=== PATIENT | male | born 1960 | race Asian ===

== ENCOUNTER 2023-03-03 14:34 | Inpatient (IN) | payer MEDICARE, OTHER ==
[~2023-03-03] VITALS: Ht 175.3 cm; Wt 75.6 kg
[2023-03-03] MEDS ORDERED: PANT-31 PO (14:45)
[2023-03-03] MEDS ORDERED: AMLO-258 PO (14:45)
[2023-03-03] MEDS ORDERED: EMPA10TA3 PO (14:45)
[2023-03-03] MEDS ORDERED: PROP10TA73 PO (14:45)
[2023-03-03] MEDS ORDERED: GABA-1201 PO (14:45)
[2023-03-03] MEDS ORDERED: ASPI-1450 PO (14:45)
[2023-03-03] MEDS ORDERED: TAMS-13 PO (14:45)
[2023-03-03] MEDS ORDERED: METF-1185 PO (14:45)
[2023-03-03] MEDS ORDERED: LOSA-382 PO (14:45)
[2023-03-03] MEDS ORDERED: METH-386 PO (14:45)
[2023-03-03] MEDS ORDERED: ONDANSETRON HCL 4 MG/2 ML VIAL IVP ONE (15:30)
[2023-03-03] MEDS ORDERED: ACETAMINOPHEN 500 MG TABLET PO ONE (15:30)
[2023-03-03] MEDS ORDERED: SODIUM CHLORIDE 0.9% 1,000 ML IV ONE (15:30)
[2023-03-03 15:58] LABS: BASOPHILS % (AUTO) 1.2 % (0.0-2.0); EOSINOPHILS % (AUTO) 3.6 % (1.0-6.0); HEMATOCRIT 42.1 % (41-53); HEMOGLOBIN 13.6 g/dL (13.5-17.5); MEAN CORPUSCULAR HEMOGLOBIN 28.9 pg (26.0-34.0); MEAN CORPUSCULAR HGB CONC 32.2 G/dL (31.0-37.0); MEAN CORPUSCULAR VOLUME 90 fL (80-100); MONOCYTES # (AUTO) 0.5 K/uL (0.1-1.0); MONOCYTES % (AUTO) 4.6 % (2.0-9.0); NEUTROPHILS # (AUTO) 8.5 K/uL (1.8-7.7); NEUTROPHILS % (AUTO) 73.6 % (40.0-70.0); PLATELET COUNT (AUTO) 304 K/uL (150-450); RED BLOOD CELL COUNT(AUTO) 4.69 MIL/uL (4.50-5.90); RED CELL DISTRIBUTION WIDTH 13.8 % (11.5-14.5)
[2023-03-03 16:02] LABS: ANION GAP 13 mmol/L (8-16); CALCIUM, TOTAL 9.5 mg/dL (8.8-10.5); CARBON DIOXIDE 25 mmol/L (22-29); CHLORIDE 100 mmol/L (98-107); GLOMERULAR FILTR. RATE CALC > 60 mL/min (>60); GLUCOSE,RANDOM 131 mg/dL (70-110); POTASSIUM 4.2 mmol/L (3.5-5.1); SODIUM SERUM 138 mmol/L (136-145)
[2023-03-03 16:09] LABS: INR 1.1 (0.9-1.1); PROTHROMBIN TIME 11.1 SEC (9.4-11.6)
[2023-03-03] MEDS ORDERED: IOHEXOL 350 MG/ML 100 ML VIAL ONE (16:12)
[2023-03-03] MEDS ORDERED: SODIUM CHLORIDE 0.9% 100 ML ONE (16:13)
[2023-03-03 16:14] LABS: B-TYPE NATRIURETIC PEPTIDE 7 pg/mL (0-100)
[2023-03-03 16:34] LABS: ALANINE AMINOTRANSFERASE 17 U/L (12-78); ALKALINE PHOSPHATASE 69 U/L (46-116); ASPARTATE AMINOTRANSFERASE 13 U/L (15-37); BILIRUBIN,TOTAL 0.6 mg/dL (0.1-1.0); CREATINE KINASE, TOTAL ONLY 78 U/L (39-308); PHOSPHORUS 3.7 mg/dL (2.5-4.9); TOTAL PROTEIN, SERUM 8.2 g/dL (6.4-8.2)
[2023-03-03] MEDS ORDERED: MAGNESIUM SULFATE 1 GM in DEXTROSE 5%-WATER 50 ML IV ONE (17:15)
[2023-03-03] MEDS ORDERED: ONDANSETRON HCL 4 MG/2 ML VIAL IVP PRN ×2 (18:45→19:15)
[2023-03-03] MEDS ORDERED: ACETAMINOPHEN 325 MG TABLET PO PRN ×2 (18:45→19:15)
[2023-03-03] MEDS ORDERED: 0.9% SODIUM CHLORIDE 10 ML SYRINGE IVP PRN (18:45)
[2023-03-03 18:47] LABS: APPEARANCE,URINE CLEAR (CLEAR); BILIRUBIN,URINE NEGATIVE (NEGATIVE); GLUCOSE, URINE (UA) >=1000 mg/dL (NEGATIVE); LEUKOCYTE ESTERASE ,URINE NEGATIVE (NEGATIVE); NITRATE,URINE NEGATIVE (NEGATIVE); OCCULT BLOOD,URINE NEGATIVE (NEGATIVE); PROTEIN,URINE TRACE mg/dL (NEGATIVE); SPECIFIC GRAVITIY, URINE 1.017 (1.003-1.030); UROBILINOGEN,URINE <=1.0 mg/dL (<=1.0)
[2023-03-03 18:53] LABS: AMPHET/METH SCREEN,URINE NEGATIVE (NEGATIVE); BARBITURATE SCREEN, URINE NEGATIVE (NEGATIVE); BENZODIAZEPINES SCREEN,URINE NEGATIVE (NEGATIVE); CANNABINOID SCREEN,URINE NEGATIVE (NEGATIVE); COCAINE SCREEN,URINE NEGATIVE (NEGATIVE); METHADONE SCREEN, URINE NEGATIVE (NEGATIVE); OPIATE SCREEN,URINE NEGATIVE (NEGATIVE); PHENCYCLIDINE SCREEN,URINE NEGATIVE (NEGATIVE)
[2023-03-03 18:59] LABS: BACTERIA,URINE None Seen /HPF (None Seen); RBC,URINE 0-2 /HPF (0-2); WBC,URINE 0-2 /HPF (0-5)
[2023-03-03 19:00] LABS: SQUAMOUS EPITHELIAL CELL,UR Rare /LPF (None Seen)
[2023-03-03] MEDS ORDERED: BISACODYL 10 MG RECTAL RECTAL SUPPOSITORY PR PRN (19:15)
[2023-03-03] MEDS ORDERED: ZOLPIDEM TARTRATE 5 MG TABLET PO PRN (19:15)
[2023-03-03] MEDS ORDERED: HYDROCODONE/ACETAMINOPHEN 5-325 MG TABLET PO PRN (19:15)
[2023-03-03] MEDS ORDERED: IPRATROPIUM BROMIDE 0.5 MG/2.5 ML NEB SOLUTION NEB PRN (19:15)
[2023-03-03] MEDS ORDERED: ALBUTEROL SULFATE 2.5 MG/0.5 ML NEB SOLUTION NEB PRN (19:15)
[2023-03-03] MEDS ORDERED: MORPHINE SULFATE 2 MG/ML SYRINGE IVP PRN (19:15)
[2023-03-03] MEDS ORDERED: MAGNESIUM HYDROXIDE SUSPENSION 30 ML UDCUP PO PRN (19:15)
[2023-03-03 20:40] VITALS: BP 127/73; PULSE 67; RESP 20; TEMP 98.5
[2023-03-04] VITALS (7 sets, daily range): BP systolic 102–136; BP diastolic 64–78; PULSE 55–74; RESP 18–19; TEMP 97.5–99; O2SAT 99
[2023-03-04] MEDS: HEPARIN SODIUM,PORCINE 5,000 UNITS/ML VIAL SQ SCH ×3 (00:10→17:12)
[2023-03-04 07:25] LABS: BASOPHILS % (AUTO) 2.1 % (0.0-2.0); EOSINOPHILS % (AUTO) 5.7 % (1.0-6.0); HEMATOCRIT 40.7 % (41-53); HEMOGLOBIN 13.7 g/dL (13.5-17.5); LYMPHOCYTES # (AUTO) 2.6 K/uL (1.0-4.8); LYMPHOCYTES % (AUTO) 27.2 % (22.0-44.0); MEAN CORPUSCULAR HEMOGLOBIN 30.2 pg (26.0-34.0); MEAN CORPUSCULAR HGB CONC 33.6 G/dL (31.0-37.0); MEAN CORPUSCULAR VOLUME 90 fL (80-100); MONOCYTES # (AUTO) 0.6 K/uL (0.1-1.0); NEUTROPHILS # (AUTO) 5.5 K/uL (1.8-7.7); PLATELET COUNT (AUTO) 300 K/uL (150-450); RED BLOOD CELL COUNT(AUTO) 4.52 MIL/uL (4.50-5.90); RED CELL DISTRIBUTION WIDTH 13.9 % (11.5-14.5)
[2023-03-04 07:51] LABS: ALANINE AMINOTRANSFERASE 12 U/L (12-78); ALBUMIN 3.6 g/dL (3.4-5.0); ALKALINE PHOSPHATASE 63 U/L (46-116); ANION GAP 14 mmol/L (8-16); ASPARTATE AMINOTRANSFERASE 11 U/L (15-37); BILIRUBIN,TOTAL 0.6 mg/dL (0.1-1.0); CALCIUM, TOTAL 8.9 mg/dL (8.8-10.5); CARBON DIOXIDE 24 mmol/L (22-29); CHLORIDE 104 mmol/L (98-107); CHOL/HDL RATIO 2.9 (4.2-7.3); CHOLESTEROL 96 mg/dL (131-200); CREATININE 1.17 mg/dL (0.60-1.30); GLOMERULAR FILTR. RATE CALC > 60 mL/min (>60); GLUCOSE,RANDOM 100 mg/dL (70-110); HDL CHOLESTEROL 33 mg/dL (40-60); LDL CHOL (CALC.) 45 mg/dL (0-130); POTASSIUM 3.9 mmol/L (3.5-5.1); SODIUM SERUM 142 mmol/L (136-145); TOTAL PROTEIN, SERUM 7.4 g/dL (6.4-8.2); TRIGLYCERIDES 91 mg/dL (15-150)
[2023-03-04] MEDS: PANTOPRAZOLE SODIUM 40 MG DR TABLET PO SCH (08:20)
[2023-03-04] MEDS: LOSARTAN POTASSIUM 50 MG TABLET PO SCH (08:21)
[2023-03-04] MEDS: EMPAGLIFLOZIN 10 MG TABLET PO SCH (08:21)
[2023-03-04] MEDS: AmLODIPine BESYLATE 10 MG TABLET PO SCH (08:21)
[2023-03-04] MEDS: ASPIRIN 81 MG CHEWABLE TABLET PO SCH (08:21)
[2023-03-04] MEDS ORDERED: PANTOPRAZOLE SODIUM 40 MG DR TABLET PO SCH (09:00)
[2023-03-04] MEDS: PROPRANOLOL HCL 10 MG TABLET PO SCH (10:26)
[2023-03-04] MEDS: METHIMAZOLE 5 MG TABLET PO SCH (10:26)
[2023-03-04] MEDS: GABAPENTIN 400 MG CAPSULE PO SCH (10:26)
[2023-03-04] MEDS: TAMSULOSIN HCL 0.4 MG CAPSULE PO SCH (10:27)
[2023-03-04 14:16] LABS: GLUCOMETER DEV NAME(LOC) 5S.1B
[2023-03-04 14:16] LABS: GLUCOMETER DEV NAME(LOC) 5N.2C
[2023-03-04] MEDS: MECLIZINE HCL 25 MG TABLET PO SCH ×2 (17:12→21:20)
[2023-03-04] MEDS ORDERED: DEXTROSE 50%-WATER 25 GM/50 ML SYRINGE IVP PRN (18:00)
[2023-03-04] MEDS: INSULIN LISPRO 100 UNITS/ML SQ PRN ×2 (18:11→21:22)
[2023-03-04 21:36] LABS: GLUCOMETER DEV NAME(LOC) 5N.1C
[2023-03-05 00:16] LABS: GLUCOMETER DEV NAME(LOC) 5N.2C
[2023-03-05] MEDS: HEPARIN SODIUM,PORCINE 5,000 UNITS/ML VIAL SQ SCH ×3 (00:22→16:00)
[2023-03-05 01:12] VITALS: BP 108/62; PULSE 65; RESP 17; TEMP 97.9
[2023-03-05 05:33] VITALS: BP 132/71; PULSE 61; RESP 18; TEMP 97.8
[2023-03-05 08:00] VITALS: BP 125/73; PULSE 62; RESP 18; TEMP 99.1
[2023-03-05] MEDS: LOSARTAN POTASSIUM 50 MG TABLET PO SCH (09:21)
[2023-03-05] MEDS: MECLIZINE HCL 25 MG TABLET PO SCH ×3 (09:21→17:05)
[2023-03-05] MEDS: PANTOPRAZOLE SODIUM 40 MG DR TABLET PO SCH (09:21)
[2023-03-05] MEDS: GABAPENTIN 400 MG CAPSULE PO SCH (09:21)
[2023-03-05] MEDS: PROPRANOLOL HCL 10 MG TABLET PO SCH (09:21)
[2023-03-05] MEDS: EMPAGLIFLOZIN 10 MG TABLET PO SCH (09:21)
[2023-03-05] MEDS: TAMSULOSIN HCL 0.4 MG CAPSULE PO SCH (09:21)
[2023-03-05] MEDS: ASPIRIN 81 MG CHEWABLE TABLET PO SCH (09:21)
[2023-03-05] MEDS: AmLODIPine BESYLATE 10 MG TABLET PO SCH (09:21)
[2023-03-05] MEDS: METHIMAZOLE 5 MG TABLET PO SCH (09:21)
[2023-03-05 10:41] LABS: GLUCOMETER DEV NAME(LOC) 5S.1B
[2023-03-05 11:37] VITALS: BP 116/71; PULSE 57; RESP 19; TEMP 98.3
[2023-03-05] MEDS ORDERED: ATOR40TA71 PO (12:24)
[2023-03-05 15:40] VITALS: BP 107/99; PULSE 65; RESP 17; TEMP 98.3
[2023-03-05] MEDS ORDERED: MECL-160 PO (16:43)
[2023-03-05 20:26] LABS: GLUCOMETER DEV NAME(LOC) 5N.2C
== END 2023-03-05 17:50 | disposition home or self-care (01) | DRG 149 ==
LOC: EMS 14:34 → 5S 18:30
PROVIDERS: ADMIT Hospitalist; ATTEND Hospitalist
DX: H81.13 Benign paroxysmal vertigo, bilateral (principal); I10 Essential (primary) hypertension; E11.9 Type 2 diabetes mellitus without complications; E05.90 Thyrotoxicosis, unspecified without thyrotoxic crisis or storm; E78.00 Pure hypercholesterolemia, unspecified; N40.0 Benign prostatic hyperplasia without lower urinary tract symptoms; R51.9 Headache, unspecified; Z79.899 Other long term (current) drug therapy; Z79.82 Long term (current) use of aspirin
CPT/HCPCS: 70450; 70496; 70498; 70551; 71045; 80053; 80061; 80307; 81001; 82550; 82962; 83735; 83880; 84100; 84484; 85025; 85610; 85730; 92610; 93005; 97110; 97116; 97162; 97165; 97530; 97535; 99285; G0378; G0480; J1644; J2270; J2405; J3475; J7030; J7050; J7060; Q9967; 36415-L1; 36415-TC